=== PATIENT | male | born 1950 | race Caucasian/White ===

== ENCOUNTER 2022-12-24 16:53 | Emergency (ER) | payer OTHER ==
[2022-12-24 17:07] VITALS: BP 124/69; PULSE 67; RESP 18; TEMP 98.2; BMI 25.0
== END 2022-12-24 19:23 | disposition home or self-care (01) ==
LOC: JERFT 16:53
DX: S61.216A Laceration without foreign body of right little finger without damage to nail, initial encounter (principal); W26.8XXA Contact with other sharp object(s), not elsewhere classified, initial encounter; Y93.9 Activity, unspecified; Y92.9 Unspecified place or not applicable
CPT/HCPCS: 73130-TC-RT-FY; 99283-25

== ENCOUNTER 2022-12-26 13:01 | Emergency (ER) | payer OTHER ==
[2022-12-26 13:05] VITALS: BP 127/83; PULSE 68; RESP 18; TEMP 98.4; BMI 24.4
== END 2022-12-26 14:13 | disposition home or self-care (01) ==
LOC: JERFT 13:01
PROC: 0HQCXZZ Repair Left Upper Arm Skin, External Approach (ICD-10-PCS; principal; 2022-12-26)
DX: S41.112A Laceration without foreign body of left upper arm, initial encounter (principal); S51.012A Laceration without foreign body of left elbow, initial encounter; W26.8XXA Contact with other sharp object(s), not elsewhere classified, initial encounter
CPT/HCPCS: 99283-25

== ENCOUNTER 2023-01-21 08:46 | Emergency (ER) | payer OTHER ==
[2023-01-21 08:59] VITALS: BP 167/105; PULSE 85; RESP 18; TEMP 97.6; BMI 23.7
== END 2023-01-21 09:37 | disposition home or self-care (01) ==
LOC: JER 08:46 → JERFT 08:46
DX: Z48.02 Encounter for removal of sutures (principal)
CPT/HCPCS: 99282-25